=== PATIENT | female | born 1995 | race Caucasian/White ===

== ENCOUNTER 2020-04-29 08:16 | Outpatient (REF) | payer OTHER, SELFPAY | END 2020-04-29 08:17 | disposition home or self-care (01) | LOC: HO.SCI 08:16 | PROVIDERS: Visit Provider Psychiatry & Neurology Neurology | DX: Z13.89 Encounter for screening for other disorder (principal) ==

== ENCOUNTER 2020-05-03 13:31 | Outpatient (REF) | payer OTHER, SELFPAY ==
--- NOTE | ~2020-05-03 | MR_ITS ---
MR BRAIN WITHOUT AND WITH CONTRAST CLINICAL INFORMATION: Encephalopathy. COMPARISON: None available. TECHNIQUE: Multiplanar, multisequence MRI of the brain was obtained before and after the intravenous administration of 6.5 mL Gadavist. FINDINGS: There is no pathologic intracranial enhancement. No parenchymal signal abnormality. There is no hydrocephalus, extra-axial surface collection, or herniation. The major flow voids at the skull base are preserved. There is no acute infarct on diffusion-weighted imaging. There is no intracranial hemorrhage on the gradient recalled echo acquisition. The midline structures are normal. The cerebellar tonsils are normally positioned. The cerebellum and brainstem are normal. The craniocervical junction is normal. Possible nonspecific bone marrow replacement within the C5 anterior elements that can be followed with a cervical spine MRI with and without IV contrast. Aerosolized secretions within the left sphenoid sinus. MR/MR head/brain wo/w con IMPRESSION: - Possible nonspecific bone marrow replacement within the C5 anterior elements that can be followed with a cervical spine MRI with and without IV contrast. - Unremarkable MRI of the brain. - Aerosolized secretions within the left sphenoid sinus.
== END 2020-05-03 13:32 | disposition home or self-care (01) ==
LOC: HO.MRI 13:31
PROVIDERS: PCP Internal Medicine; Visit Provider Psychiatry & Neurology Neurology
DX: G93.40 Encephalopathy, unspecified (principal)
CPT/HCPCS: 70553; A9585